=== PATIENT | male | born 1940 | race Caucasian/White ===

== ENCOUNTER 2023-04-18 21:16 | Emergency (ER) | payer MEDICARE, SELFPAY ==
[2023-04-18] VITALS (19 sets, daily range): BP systolic 148–182; BP diastolic 53–70; PULSE 61–77; RESP 12–25; TEMP 36.8; O2SAT 93–100
--- NOTE | ~2023-04-18 | CT_ITS ---
EXAMINATION: CT abdomen pelvis w con DATE: 04/19/2023 00:03 INDICATION: (after US complete please); hernia +abd pain TECHNIQUE: Computed tomography (CT) of the abdomen and pelvis was performed with 100 mL Omnipaque-350 intravenous contrast. Automated exposure control and iterative reconstruction technique were employe d. The dose-length product was 941.14 mGy-cm. COMPARISON: Left groin ultrasound, same date. FINDINGS: Lower thorax: Senescent and emphysematous change. Bibasilar atelectasis. Coronary artery calcificatio n. Liver: Normal. Biliary/Gallbladder: Cholelithiasis. No bile duct dilation. Pancreas: No mass or duct dilation. Spleen: Normal. Adrenals:Right adrenal adenoma. Kidneys: Multiple bilateral simple cysts and hypodensities that are too small to characterize but mos t likely represent cysts. No hydronephrosis or obstructing calcification. GI tract: No small or large bowel dilation. Normal appendix. Mesentery/Peritoneum: No ascites, mass, or free air. Retroperitoneum: No mass. Atherosclerotic abdominal aortic and/or arterial calcifications. Pelvis: Bladder wall thickening, likely due to outlet obstruction from prostatomegaly. Soft Tissues: Small bilateral uncomplicated appearing fat-containing inguinal hernias, larger on the left. Left hernia sac measures 2.3 x 6.1 cm and passes through a 1.2 cm neck. A loop of small bowel i s situated at the entrance of the left inguinal hernia neck. Bones: No acute osseous finding. IMPRESSION: Small, fat-containing left inguinal hernia, consistent with prior ultrasound findings but without CT findings of significant inflammation. A loop of small bowel is situated at the entrance of the left i nguinal hernia neck but is not currently herniated. A small fat-containing right inguinal hernia is a lso noted. Reviewed, dictated and finalized at location K. S SUPERVISOR IMPRESSION: Small, fat-containing left inguinal hernia, consistent with prior ultrasound fi ndings but without CT findings of significant inflammation. A loop of small bow el is situated at the entrance of the left inguinal hernia neck but is not curr ently herniated. A small fat-containing right inguinal hernia is also noted.
--- NOTE | ~2023-04-18 | US_ITS ---
EXAMINATION: US soft tissue groin LT DATE: 04/18/2023 23:06 INDICATION: swelling . TECHNIQUE: Grayscale and Doppler ultrasound images of the left groin were obtained. COMPARISON: None. FINDINGS: Sonographic interrogation of the region of interest reveals a 2.6 x 4 cm ovoid heterogeneou s collection which appears to protrude from the abdominal wall at the groin, with a 1.5 cm neck. Tend erness to transducer pressure. The collection was reducible during examination. Sac appears to includ e mesenteric fat, definite bowel not identified. IMPRESSION: Possibly inflamed 2.6 x 4 cm left inguinal or left lower anterior abdominal wall hernia which was red ucible during sonographic evaluation. Please refer to the report on the scheduled CT abdomen and pelv is for additional details. Reviewed, dictated and finalized at location K. ING MACHINE OPERATOR IMPRESSION: Possibly inflamed 2.6 x 4 cm left inguinal or left lower anterior abdominal wal l hernia which was reducible during sonographic evaluation. Please refer to the report on the scheduled CT abdomen and pelvis for additional details.
--- NOTE | 2023-04-18 22:35 | ED.GENADULT ---
HPI - General Adult General Chief complaint: Unspecified Stated complaint: groin pain Time Seen by Provider: 04/18/23 22:35 Source: patient and family (daughter) Limitations: no limitations History of Present Illness HPI narrative: This is an 82 yo male who presents with left groin pain. He has a history of umbilical/ventral hernia repair 10 years ago. He denies any abdominal pain or fevers. His last bowel movement was this morning and he denies any diarrhea, constipation, or bloody bowel movements. He continues to pass flatus. He is on supplemental oxygen 3LPM via nasal cannula at home. Related Data Allergies Allergy/AdvReac Type Severity Reaction Status Date / Time No Known Allergies Allergy Verified 04/18/23 21:24 PMFSH Past Medical History Medical History On supplemental oxygen by nasal cannula 3LPM Surgical History Surgical History (Updated 04/23/23 @ 11:11 by Kristie Villanueva MD) H/O hernia repair ventral/umbilical (approximately 2012) Exam Narrative: GENERAL: Well-appearing, well-nourished, and in no acute distress. HEAD: Normocephalic, atraumatic. EYES: EOMI. ENT: no rhinorrhea or epistaxis. Nasal cannula in place NECK: Supple. No meningismus. CHEST: No respiratory distress. Speaking in full sentences. HEART: Regular rate and rhythm. ABDOMEN: Soft, nondistended. TTP of RLQ and LLQ without rigidity, guarding, or rebound tenderness. Inguinal hernia felt on the left without overlying skin changes. EXTREMITIES: Normal range of motion. No edema. SKIN: Warm, dry, no rash. NEURO: No focal deficits. Alert and oriented x3. PSYCH: Normal mood and affect. Course Vital Signs Vital signs: Vital Signs Temperature 98.3 F 04/18/23 21:21 Pulse Rate 65 04/18/23 21:21 Respiratory Rate 22 H 04/18/23 21:21 Blood Pressure 149/70 H 04/18/23 21:21 Pulse Oximetry 96 04/18/23 21:21 Oxygen Delivery Nasal Cannula 04/18/23 21:21 Oxygen Flow Rate 4 04/18/23 21:21 Temperature 98.3 F 04/18/23 21:21 Pulse Rate 73 04/19/23 01:15 Respiratory Rate 24 H 04/19/23 01:15 Blood Pressure 169/63 H 04/19/23 01:01 Pulse Oximetry 96 04/19/23 01:02 Oxygen Delivery Nasal Cannula 04/18/23 21:21 Oxygen Flow Rate 4 04/18/23 21:21 Medical Decision Making MDM Narrative Medical decision making narrative: This is an 82 yo male who presents with left groin pain. He denies any abdominal pain, fevers, or changes in bowel and continues to pass flatus. On physical exam, he does have evidence of a left sided hernia without overlying skin changes. Nevertheless, he has more tenderness to palpation in the LLQ and RLQ than I would suspect with a simple easily reduciable hernia. For this reason, will pursue imaging in addition to labs, IV fluids, and pain relief. Hernia reduces during ultrasound study. Patient is re-evaluated and states he is feeling much better. He will follow up outpatient with general surgeon to discuss hernia repair. He is also given strict return precautions and we discuss the diagnoses of reducible versus strangulated versus incarcerated hernia and he verifies understanding the significance. Questions answered. Discharged in stable condition. Differential Diagnosis Differential Diagnosis: reducible hernia, incarcerated hernia, strangulated hernia Vital Signs Vital Signs: Vital Signs Temperature 98.3 F 04/18/23 21:21 Pulse Rate 65 04/18/23 21:21 Respiratory Rate 22 H 04/18/23 21:21 Blood Pressure 149/70 H 04/18/23 21:21 Pulse Oximetry 96 04/18/23 21:21 Oxygen Delivery Nasal Cannula 04/18/23 21:21 Oxygen Flow Rate 4 04/18/23 21:21 Temperature 98.3 F 04/18/23 21:21 Pulse Rate 73 04/19/23 01:15 Respiratory Rate 24 H 04/19/23 01:15 Blood Pressure 169/63 H 04/19/23 01:01 Pulse Oximetry 96 04/19/23 01:02 Oxygen Delivery Nasal Cannula 04/18/23 21:21 Oxygen Flow Rat
[2023-04-18] MEDS: MORPHINE SULFATE (*CRX) 4 MG/ML INJ IV PUSH (23:17)
[2023-04-18] MEDS: SODIUM CHLORIDE 0.9% IV 1,000 ML 999 ML IV CONT (23:17)
[2023-04-18 23:32] LABS: Basophils Percent Auto 0.5 % (0.2-1.2); Eosinophils Absolute Auto 0.2 K/mm3 (0-0.3); Eosinophils Percent Auto 1.8 % (0-4.4); Hematocrit 35.5 % (42.0-52.0); Hemoglobin 11.8 g/dL (14.0-18.0); Immature Granulocyte Absolute 0.03 K/mm3 (0.00-0.031); Immature Granulocyte Percent A 0.3 % (0-0.5); Lymphocytes Absolute Auto 0.86 K/mm3 (0.9-3.2); Lymphocytes Percent Auto 9.9 % (18.3-44.2); Mean Corpuscular HGB Conc 33.2 g/dl (32-36); Mean Corpuscular Hemoglobin 29.4 pg (26-34); Mean Corpuscular Volume 88.5 fl (80-100); Mean Platelet Volume 9.6 fl (7.4-10.4); Monocytes Absolute Auto 0.5 K/mm3 (0.1-0.6); Monocytes Percent Auto 5.5 % (2.6-8.5); Neutrophils Absolute Auto 7.1 K/mm3 (1.3-6.7); Platelet Count Result 190 k/mm3 (150-375); Red Blood Count 4.01 M/mm3 (4.6-6.20); Red Cell Distribution Width 13.5 % (11.5-14.5); White Blood Count 8.7 K/mm3 (4.5-10.0)
[2023-04-18 23:42] LABS: Alanine Aminotransferase 19 U/L (6-50); Albumin Level 3.6 g/dL (3.5-5.1); Alkaline Phosphatase 76 U/L (38-126); Anion Gap 6 mmol/L (8-16); Aspartate Amino Transferase 29 U/L (17-59); Bilirubin,Total 0.4 mg/dL (0.2-1.3); Blood Urea Nitrogen 29 mg/dL (9-20); Calcium 8.6 mg/dL (8.4-10.2); Carbon Dioxide 28 mmol/L (22-30); Chloride 102 mmol/L (98-107); Estimated CRCL calculation 38 ml/min; Estimated Glomerular Filt Rate 45; Glucose 120 mg/dL (65-110); Potassium 4.7 mmol/L (3.4-5.0); Sodium 136 mmol/L (137-145)
[2023-04-18 23:59] LABS: Prothrombin Time 13.6 Seconds (11.1-14.7)
[2023-04-19] VITALS (11 sets, daily range): BP systolic 158–169; BP diastolic 57–69; PULSE 65–80; RESP 13–24; O2SAT 93–97
[2023-04-19] LABS: Partial Thromboplastin Time 34.5 SECONDS (22.3-36.8)
== END 2023-04-19 01:22 | disposition home or self-care (01) ==
PROVIDERS: Emergency Provider Student in an Organized Health Care Education/Training Program
DX: K40.90 Unilateral inguinal hernia, without obstruction or gangrene, not specified as recurrent (principal)
CPT/HCPCS: 36415; 74177; 76882; 80053; 85025; 85610; 85730; 96361; 96374; 99284; J2270; J7030; Q9967

== ENCOUNTER 2023-05-14 10:49 | Outpatient (CLI) | payer MEDICARE, SELFPAY ==
--- NOTE | ~2023-05-14 | XR_ITS ---
EXAMINATION: XR chest 2V DATE: 05/14/2023 11:41 INDICATION: COPD TECHNIQUE: Frontal and lateral views of the chest are obtained COMPARISON: None available FINDINGS: There is a left perihilar masslike opacity. The lungs are hyperinflated. No pleural effusio n or pneumothorax. The cardiomediastinal silhouette is normal. There is moderate thoracic spondylosis . IMPRESSION: 1. Left perihilar masslike opacity. Further evaluation with CT of the chest is recommended. Reviewed, dictated and finalized at location B. ECTIVE CLOTHING ISSUER
--- NOTE | 2023-05-14 11:02 | ECG_ITS ---
Measurements Intervals [place] Rate: 57 P: 34 NM: 136 QRS: 67 QRSD: 91 T: 89 QT: 409 QTc: 401 Interpretive Statements SINUS BRADYCARDIA BASELINE ARTIFACT LOW-VOLTAGE QRS IN LIMB LEADS BORDERLINE ECG NO PREVIOUS ECG AVAILABLE FOR COMPARISON Electronically Signed On 05-14-2023 17:16:19 TALLOW MAKER by Thuan Mike M.D.
[2023-05-14 12:42] LABS: Basophils Percent Auto 0.3 % (0.2-1.2); Eosinophils Absolute Auto 0.1 K/mm3 (0-0.3); Hematocrit 36.2 % (42.0-52.0); Hemoglobin 11.6 g/dL (14.0-18.0); Immature Granulocyte Absolute 0.03 K/mm3 (0.00-0.031); Immature Granulocyte Percent A 0.3 % (0-0.5); Lymphocytes Absolute Auto 0.71 K/mm3 (0.9-3.2); Lymphocytes Percent Auto 8.3 % (18.3-44.2); Mean Corpuscular Hemoglobin 29.1 pg (26-34); Mean Platelet Volume 9.7 fl (7.4-10.4); Monocytes Absolute Auto 0.5 K/mm3 (0.1-0.6); Monocytes Percent Auto 5.5 % (2.6-8.5); Neutrophils Absolute Auto 7.3 K/mm3 (1.3-6.7); Neutrophils Percent Auto 84.6 % (45.5-73.1); Platelet Count Result 180 k/mm3 (150-375); Red Blood Count 3.98 M/mm3 (4.6-6.20); Red Cell Distribution Width 13.4 % (11.5-14.5); White Blood Count 8.6 K/mm3 (4.5-10.0)
[2023-05-14 12:53] LABS: Anion Gap 4 mmol/L (8-16); Blood Urea Nitrogen 21 mg/dL (9-20); Calcium 8.7 mg/dL (8.4-10.2); Carbon Dioxide 30 mmol/L (22-30); Chloride 100 mmol/L (98-107); Estimated Glomerular Filt Rate 39; Glucose 102 mg/dL (65-110); Potassium 4.1 mmol/L (3.4-5.0); Sodium 134 mmol/L (137-145)
== END 2023-05-14 10:50 | disposition home or self-care (01) ==
LOC: ANHSURGERY 10:57
PROVIDERS: Visit Provider Surgery
DX: J44.9 Chronic obstructive pulmonary disease, unspecified (principal); K40.90 Unilateral inguinal hernia, without obstruction or gangrene, not specified as recurrent
CPT/HCPCS: 36415; 71046; 80048; 85025; 93005